=== PATIENT | male | born 1965 | race Caucasian/White ===

== ENCOUNTER 2017-01-22 17:08 | Emergency (ER) | payer SELFPAY ==
[2017-01-22 17:19] VITALS: BP 140/81
--- NOTE | 2017-01-22 18:07 | ED ---
Adult Trauma - HPI Summary HPI Summary: Pt here w/ trauma to Lt posterior aspect of chest, flank, and hip prior to arrival. Was at work when a tree the size of a telephone pole was being lifted by a payan and bounced off a pile of wood, then swung toward pt - he ran in the opposite direction to try to avoid contact, however the tree struck him and he fell forward in pain, most notably in Lt hip. Has bruising over affected area. Has urinated w/o michael hematuria since injury. Denies head injury, LOC, neck pain, change in vision, dizziness, weakness, syncope, nausea, vomiting, chest pain, ab pain, UE pain. Lt hip hurts to move and has pain/numbness shooting into buttock/hamstring here. No weakness and is able to ambulate. Ice is helping. Has not taken anything for pain prior to arrival. He is overall healthy other than HTN treated with losartan. 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 - Pain Intensity: 7 - Allergy/Home Medications Allergies/Adverse Reactions: Allergies Allergy/AdvReac Type Severity Reaction Status Date / Time Nickel Allergy Rash And Verified 01/22/17 17:39 Itching PMH/Surg Hx/FS Hx/Imm Hx Previously Healthy: Yes Endocrine/Hematology History: Denies: Hx Anticoagulant Therapy, Hx Blood Disorders, Hx Diabetes, Hx Thyroid Disease Cardiovascular History: Reports: Hx Hypertension - on med - controlled Respiratory History: Denies: Hx Asthma GI History: Denies: Hx Ulcer Infectious Disease History: Denies: Hx Clostridium Difficile, Hx Hepatitis, Hx Human Immunodeficiency Virus (HIV), Hx of Known/Suspected MRSA, Hx Shingles, Hx Tuberculosis, Hx Known/ Suspected VRE, Hx Known/Suspected VRSA, History Other Infectious Disease, Traveled Outside the [place] in Last 30 Days - Social History Occupation: Employed Full-time - [employer] Lives: With Family Alcohol Use: None - last drink 2015 Hx Substance Use: No Substance Use Type: Reports: None Smoking Status (MU): Former Smoker Type: Cigarettes Amount Used/How Often: QUIT 6 years ago Review of Systems Constitutional: Negative Negative: Fatigue Eyes: Negative Negative: Photophobia, Blurred Vision, Diplopia ENT: Negative Negative: Dental Pain, Ear Ache Cardiovascular: Negative Negative: Chest Pain Respiratory: Negative Negative: Shortness Of Breath Gastrointestinal: Negative Negative: Abdominal Pain, Vomiting, Diarrhea, Nausea Positive: flank pain. Negative: hematuria Musculoskeletal: Other - see HPI Positive: Bruising - see HPI Neurological: Other - see HPI Psychological: Normal All Other Systems Reviewed And Are Negative: Yes Physical Exam Triage Information Reviewed: Yes Vital Signs On Initial Exam: Initial Vitals Temp Pulse Resp BP Pulse Ox 97.4 F 75 20 140/81 97 01/22/17 17:16 01/22/17 17:16 01/22/17 17:16 01/22/17 17:16 01/22/17 17:16 Vital Signs Reviewed: Yes Appearance: Positive: Well-Appearing, Pain Distress - mild at rest - sitting on stretcher w/ ice over back Skin: Positive: Warm, Dry - superficial capillary damage over Lt posterior chest , flank w/ ecchymosis and edema - TTP - no michael open skin, bleeding, oozing, crusting observed Head/Face: Positive: Normal Head/Face Inspection Eyes: Positive: Normal, EOMI, CHRISTOPH ENT: Positive: Hearing grossly normal Dental: Negative: Dental Fracture @ Neck: Positive: Supple, Nontender Respiratory/Lung Sounds: Positive: Clear to Auscultation, Breath Sounds Present - no pain w/ deep breath, no flail chest observed. Negative: Subcutaneous Emphysema, Tracheal Deviation Cardiovascular: Positive: Normal, RRR, Pulses are Symmetrical in both Upper and Lower Extremities Abdomen Description: Positive: Nontender, Soft Bowel Sounds: Positive: Present Musculoskeletal: Positive: Strength/ROM Intact, Pain @ - Lt hip TTP - femur, tibia, ankle, foot and lumbar spinous pp NTTP Neurological: Positive: Normal, Sensory/Motor Intact, Alert, Oriented to Person Place, Time, CN Intact II-III Psychiatric: Positive: Normal Diagnostics - Vital Signs Vital Signs Temp Pulse Resp BP Pulse Ox 01/22/17 17:26 97.4 F 75 20 140/81 97 01/22/17 17:16 97.4 F 75 20 140/81 97 - Laboratory Result Diagrams: 01/22/17 18:10 01/22/17 18:10 Lab Statement: Any lab studies that have been ordered have been reviewed, and results considered in the medical decision making process. Adult Trauma Course/Dx - Course Course Of Treatment: Pt here w/ traumatic injury to Lt back area. Visible bruising and swelling here. Pt does not want pain medication and rested comfortably while waiting for CT and results which are neg for life threatening injury. Will be d/c'd w/ supportive care instructions and close f/u w/ PCP tomorrow to monitor for more serious symptom presentation. Reviewed danger s/sx of when to return here today. - Diagnoses Provider Diagnoses: Contusion, Hip pain, left Discharge - Discharge Plan Condition: Stable Disposition: HOME Patient Education Materials: Contusion in Adults (ED), Hip Pain (ED) Forms: *Work Release Referrals: Kye Cohen MD [Primary Care Provider] - 1 Day Additional Instructions: You do not appear to have any fracture, internal bleeding or life threatening injuries from your accident earlier today. You may continue to ice and take acetaminophen alternating with ibuprofen for pain. Follow-up with PCP tomorrow. Call in the morning to schedule an appointment. *If you develop bloody urine, chest pain, difficulty breathing, bloody cough, shortness of breath, abdominal pain, weakness, return to ED
[2017-01-22 18:18] LABS: Hematocrit 45 % (42-52); Hemoglobin 15.2 g/dl (14.0-18.0); Mean Corpuscular HGB Conc 34 g/dl (31-36); Mean Corpuscular Hemoglobin 31 pg (27-31); Mean Corpuscular Volume 91 fL (80-94); Mean Platelet Volume 8 um3 (7.4-10.4); Red Blood Count 4.97 10^6/ul (4.0-5.4); Red Cell Distribution Width 13 % (10.5-15); White Blood Count 9.6 10^3/ul (3.5-10.8)
[2017-01-22 18:34] LABS: ALT 28 U/L (7-52); Albumin 4.5 g/dL (3.2-5.2); Alkaline Phosphatase 72 U/L (34-104); BUN/Creatinine Ratio 13.7 (8-20); Blood Urea Nitrogen 16 mg/dL (6-24); CO2 Carbon Dioxide 22 mmol/L (22-32); Calcium 9.6 mg/dL (8.6-10.3); Chloride 109 mmol/L (101-111); EGFR African American 84.2 (>60); EGFR Non-African American 65.5 (>60); Globulin 3.2 g/dL (2-4); Glucose 79 mg/dL (70-100); Sodium 139 mmol/L (133-145); Total Protein 7.7 g/dL (6.4-8.9)
[2017-01-22 18:41] LABS: Anion Gap 8 mmol/L (2-11)
[2017-01-22] MEDS ORDERED: Iohexol 300* (CONTRAST) 10 ML SDV IV ONE (19:01)
--- NOTE | 2017-01-22 19:37 | RAD ---
HISTORY: Chest and left flank trauma COMPARISONS: None TECHNIQUE: Multiple contiguous axial CT scans were obtained of the chest, abdomen, and pelvis after the administration of intravenous contrast. Coronal and sagittal multiplanar reformations are submitted for review.. Oral contrast was not administered. FINDINGS: CHEST NECK AND THYROID: The lower neck and thyroid are unremarkable. CHEST WALL: There is no lower cervical, axillary, or supraclavicular lymphadenopathy by size criteria. HEART AND PERICARDIUM: The heart is unremarkable. AORTA AND PULMONARY VASCULATURE: The aorta and pulmonary vasculature are normal. MEDIASTINUM: There is no mediastinal lymphadenopathy by size criteria. FREDERICK: There is no hilar lymphadenopathy by size criteria. AIRWAY AND ESOPHAGUS: The airway is unremarkable, without endobronchial filling defect. The esophagus is grossly normal. LUNG PARENCHYMA: The lungs are clear. PLEURA: No pleural abnormalities are noted. BONES AND SOFT TISSUES: Mild degenerative changes are noted. There is minimal depression of the superior endplate of T7. This appears chronic. ABDOMEN/PELVIS: LIVER: There is calcified granuloma of the liver BILE DUCTS: There is no intrahepatic or extrahepatic biliary dilatation. GALLBLADDER: The gallbladder is normal, without pericholecystic inflammatory change. PANCREAS: The pancreas is normal, without mass or ductal dilatation. SPLEEN: Normal in size and appearance. UPPER GI TRACT: Evaluation of the gastrointestinal tract is limited by incomplete gastric distention. There is postsurgical change to the upper GI tract. SMALL BOWEL \T\ MESENTERY: The small bowel is normal in contour, course, and caliber. There is no obstruction or dilatation. COLON: The colon is normal in contour, course, caliber. There is no pericolonic inflammatory change. ADRENALS: Normal bilaterally. KIDNEYS: The kidneys are normal in shape, size, contour, and axis. There is no hydronephrosis or nephrolithiasis. BLADDER: The bladder is smooth in contour. PELVIC ORGANS: The prostate gland is normal. The seminal vesicles are symmetric. AORTA: The aorta is normal. IVC: Unremarkable LYMPH NODES: There is no lymphadenopathy by size criteria. ABDOMINAL WALL: There is no evidence for abdominal wall hernia. BONES: Mild degenerative changes are noted. There is mild soft tissue swelling of the subcutaneous fat along the left posterolateral abdomen consistent with the given history of trauma OTHER: There is no active arterial transition. There is no free intraperitoneal fluid or free intraperitoneal gas IMPRESSION: MILD STRANDING OF THE SUBCUTANEOUS FAT ALONG THE LEFT POSTEROLATERAL ABDOMEN, CONSISTENT WITH THE GIVEN HISTORY OF TRAUMA. OTHERWISE, NO ACUTE CT PATHOLOGY OF THE VISUALIZED CHEST, ABDOMEN, OR PELVIS
== END 2017-01-22 20:06 | disposition home or self-care (01) ==
LOC: ED 17:08
DX: S70.02XA Contusion of left hip, initial encounter (principal); R10.84 Generalized abdominal pain; W19.XXXA Unspecified fall, initial encounter; Y93.9 Activity, unspecified; Y92.9 Unspecified place or not applicable; Z87.891 Personal history of nicotine dependence
CPT/HCPCS: 36415; 71260; 74177; 80053; 85025; 86850; 86900; 86901; 99282; Q9967